=== PATIENT | female | born 2000 | race Caucasian/White ===

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

== ENCOUNTER 2020-04-06 22:18 | Emergency (ER) | payer OTHER ==
[2020-04-06 22:30] VITALS: BMI 24.8
--- NOTE | 2020-04-06 22:34 | PDOC ---
History of Present Illness - General Chief Complaint: Substance Abuse Stated Complaint: OVERDOSE Time Seen by Provider: 04/06/20 22:31 History Source: Patient Exam Limitations: No Limitations - History of Present Illness Initial Comments: 19 y.o female presents to the ED with edible cannabis intoxication. This is her first experience ingesting edible cannabis and reports taking it 2 hours prior to arrival. About 30 minutes later she began feeling lightheaded/dizziness, nausea/vomiting, and anxiousness when she had to lay down and called EMS. In the ED she reported continued anxiousness and dizziness and nausea/vomiting that improved after being given Zofran. She reported abdominal pain but attributed it to menstrual cramps. She denied CP, SOB, LOC/syncope, falls, numbness/tingling, or weakness. She did not take any other recreational drugs. PMH: none SH: none Meds: none Allergies: Augmentin Tob/Etoh/Rec drugs: Cannabis, no etoh, tob, or other rec drugs ROS GENERAL/CONSTITUTIONAL: No fever or chills. No weakness. HEENT: No change in vision. CARDIOVASCULAR: No chest pain or shortness of breath RESPIRATORY: No cough GASTROINTESTINAL: +Nausea and vomiting GENITOURINARY: No dysuria, frequency, or change in urination. MUSCULOSKELETAL: No joint or muscle swelling or pain. NEUROLOGIC: No headache, vertigo, loss of consciousness, or change in strength/sensation. PE GENERAL: Awake, alert, and fully oriented, in no acute distress HEAD: No signs of trauma, normocephalic, atraumatic EYES: PERRLA, EOMI, sclera anicteric, conjunctival injection ENT: Auricles normal inspection, hearing grossly normal, nares patent NECK: Normal ROM, supple HEART: Regular rhythm with tachycardia, normal S1 and S2, no murmurs, rubs or gallops, peripheral pulses normal and equal bilaterally LUNGS: No distress, speaks full sentences, clear to auscultation bilaterally ABDOMEN: Soft, nontender, normoactive bowel sounds. No guarding EXTREMITIES : Normal inspection, Normal range of motion, no edema. No clubbing or cyanosis. NEUROLOGICAL: CN II-XII intact. Normal speech, normal gait, no focal senso rimotor deficits SKIN: Warm, Dry, normal turgor, no rashes or lesions noted Assessment and Plan 1. Cannabis intoxication - 1L NS and 4mg IV Zofran, allow patient to sober up Patient stable for discharge. Informed of all lab and imaging results. Given follow up instructions and strict return precautions. Patient expressed understanding and agree to plan Gómez Freitas, PGY1 Emergency Medicine Past History - Medical History Allergies/Adverse Reactions: Allergies Allergy/AdvReac Type Severity Reaction Status Date / Time amoxicillin trihydrate Allergy Severe Verified 04/06/20 22:30 [From Augmentin] potassium clavulanate Allergy Severe Verified 04/06/20 22:30 [From Augmentin] Home Medications: Ambulatory Orders NK [No Known Home Medication] 09/20/18 COPD: No - Psycho-Social/Smoking History Smoking History: Current some day smoker Have you smoked in the past 12 months: Yes Number of Cigarettes Smoked Daily: 5 Information on smoking cessation initiated: No - Substance Abuse Hx (Audit-C & DAST Scrn) How often the patient has a drink containing alcohol: Monthly or less Number of drinks the patient has on a typical day: 1 or 2 How often the patient has six or more drinks on one occasion: Less than monthly Score: In Men: 4 or > Positive; In Women: 3 or > Positive: 2 Screen Result (Pos requires Nsg. Audit-10AR): Negative In the last yr the pt used illegal drug/Rx for NonMed reason: Yes Score: Yes response is considered Positive: 1 Screen Result (Positive result requires Nsg. DAST-10): Positive *Physical Exam - Vital Signs Last Vital Signs Temp Pulse Resp BP Pulse Ox 96.8 F L 102 H 20 134/89 97 04/06/20 22:27 04/06/20 22:27 04/06/20 22:27 04/06/20 22:27 04/06/20 22:27 Medical Decision Making - Medical Decision Making 19 y.o female presents to the ED with edible cannabis intoxication with anxiousness, dizziness, and nausea/vomiting. She was given 4mg IV Zofran and 1L NS with improvement of the nausea/vomiting. Physical exam was unremarkable and neuro exam intact. She did not take any other substances so no further workup was required. Patient was allowed to rest comfortably and sober up. She was able to tolerate PO and demonstrate the ability to ambulate. She is safe for discharge home. Discharge - Discharge Information Problems reviewed: Yes Clinical Impression/Diagnosis: Cannabis abuse with intoxication Condition: Stable Disposition: HOME - Admission No - Follow up/Referral - Patient Discharge Instructions Patient Printed Discharge Instructions: DI for Drug Abuse and Drug Addiction Additional Instructions: You came into the ED because of cannabis intoxication after ingesting an edible. You improved after getting medication for nausea and IV fluids. Your exam was benign. You did not require further workup. Come back to the ED if you are unable to tolerate drinking fluids due to nausea/vomiting, or worsening of your dizziness. - Post Discharge Activity Work/Back to School Note: Back to Work
[2020-04-06] MEDS ORDERED: ONDANSETRON 4 MG/2 ML VIAL IVPUSH ONE (22:45)
[2020-04-06] MEDS ORDERED: SODIUM CHLORIDE 1,000 ML IV STA (22:48)
--- NOTE | 2020-04-06 23:45 | PDOC ---
Documentation entered by Cornelio Mora SCRIBE, acting as scribe for Eugene Greene MD. Eugene Greene MD: This documentation has been prepared by the Abby salazar Nirvannie, SCRIBE, under my direction and personally reviewed by me in its entirety. I confirm that the documentation accurately reflects all work, treatment, procedures, and medical decision making performed by me. Attending Attestation - Resident Resident Name: Gómez Freitas - ED Attending Attestation I have performed the following: I have examined & evaluated the patient, The case was reviewed & discussed with the resident, I agree w/resident's findings & plan, Exceptions are as noted - HPI HPI: 04/06/20 23:02 The patient is a 19 year old female with no significant past medical history who presents to the ED via EMS with nausea and vomiting. While in the ED, patient admits to eating a piece of a marijuana edible this evening approximately 3 hours prior to arrival. Pt then began to feel nauseous and dizzy. Pt reports vomiting twice. Denies any abdominal pain. Denies any other ingestion. Allergies: Amoxicillin trihydrate, potassium clavulanate - Physicial Exam PE: 04/06/20 23:49 "GENERAL: Awake, alert, and fully oriented, in no acute distress. HEAD: No signs of trauma EYES: PERRLA, EOMI, sclera anicteric, conjunctiva clear ENT: Auricles normal inspection, hearing grossly normal, nares patent, oropharynx clear without exudates. Moist mucosa NECK: Nontender, no stepoffs, Normal ROM, supple, no lymphadenopathy, JVD, or masses LUNGS: Breath sounds equal, clear to auscultation bilaterally. No wheezes, and no crackles HEART: Regular rate and rhythm, normal S1 and S2, no murmurs, rubs or gallops ABDOMEN: Soft, nontender, normoactive bowel sounds. No guarding, no rebound. No masses EXTREMITIES: Normal range of motion, no edema. No clubbing or cyanosis. No cords, erythema, or tenderness NEUROLOGICAL: Cranial nerves II through XII intact. 5/5 strength and sensation in all extremities, Normal speech, normal gait, normal cerebellar function SKIN: Warm, Dry, normal turgor, no rashes or lesions noted. - Medical Decision Making 04/06/20 23:49 19 F with marijuana intoxication after ingesting marijuana edible. - IV fluids, zofran - Reassess when sober 04/07/20 01:20 Pt reports she feels much better Tolerating PO 04/07/20 01:53 Pt ambulating with steady gait Pt is well appearing, with normal vitals. Clinically stable for DC at this time. I discussed the physical exam findings, ancillary test results and final diagnoses with the patient. I answered all of the patient's questions. The patient was satisfied with the care received and felt comfortable with the discharge plan and treatment plan. The patient agrees to follow up with the primary care physician within 24-72 hours. Please note this patient was evaluated during the COV- crisis with the presidential [place] Act Declaration and the [place] governca executive order number 202. He/she was evaluated and clinical decisions were made relative to healthcare system resources as well as clinical picture during a pandemic crisis situation. Discharge - Discharge Information Problems reviewed: Yes Clinical Impression/Diagnosis: Cannabis abuse with intoxication Condition: Stable Disposition: HOME - Follow up/Referral - Patient Discharge Instructions Patient Printed Discharge Instructions: DI for Drug Abuse and Drug Addiction Additional Instructions: You came into the ED because of cannabis intoxication after ingesting an edible. You improved after getting medication for nausea and IV fluids. Your exam was benign. You did not require further workup. Come back to the ED if you are unable to tolerate drinking fluids due to nausea/vomiting, or worsening of your dizziness. - Post Discharge Activity Work/Back to School Note: Back to Work
[2020-04-07 02:06] VITALS: BP 126/78; PULSE 88; TEMP 97.8
== END 2020-04-07 02:04 | disposition home or self-care (01) ==
LOC: JER 22:18
PROC: 3E0337Z Introduction of Electrolytic and Water Balance Substance into Peripheral Vein, Percutaneous Approach (ICD-10-PCS; principal; 2020-04-06)
PROC: 3E033GC Introduction of Other Therapeutic Substance into Peripheral Vein, Percutaneous Approach (ICD-10-PCS; principal; 2020-04-06)
DX: F12.129 Cannabis abuse with intoxication, unspecified (principal)
CPT/HCPCS: 99284-25

== ENCOUNTER 2021-12-16 20:11 | Emergency (ER) | payer OTHER ==
[2021-12-16 20:27] VITALS: BMI 32.9
[2021-12-16] MEDS ORDERED: ONDANSETRON 4 MG/2 ML VIAL IVPUSH ONE (20:55)
[2021-12-16] MEDS ORDERED: ACETAMINOPHEN 1000 MG/100 ML BAG IVPB ONE (20:55)
[2021-12-16] MEDS ORDERED: SODIUM CHLORIDE 0.9% 500 ML INFUS.BAG IV ONE (20:55)
[2021-12-16] MEDS ORDERED: ONDANSETRON 4 MG/2 ML VIAL ONE (20:57)
[2021-12-16] MEDS ORDERED: ACETAMINOPHEN INJECTION 100 ML IVPB ONE (20:57)
[2021-12-16 21:24] LABS: BASO % 0.2 % (0-2.0); EOS % 0.6 % (0-4.5); HEMOGLOBIN 12.3 GM/dL (10.7-15.3); LYMPH % 14.8 % (8-40); MCH 28.4 pg (25.7-33.7); MCHC 34.2 g/dl (32.0-36.0); MEAN CELL VOLUME 83.3 fl (80-96); MONO % 6.5 % (3.8-10.2); NEUT % 77.9 % (42.8-82.8); PLATELET COUNT 329 10^3/uL (134-434); RBC 4.32 M/mm3 (3.60-5.2); RDW 12.9 % (11.6-15.6); WHITE BLOOD COUNT 12.4 K/mm3 (4.0-10.0)
[2021-12-16 21:45] LABS: ALBUMIN 3.7 g/dl (3.4-5.0); BLOOD UREA NITROGEN 11.2 mg/dL (7-18); CALCIUM 8.8 mg/dL (8.5-10.1); MAGNESIUM 2.1 mg/dL (1.8-2.4)
[2021-12-16 21:47] LABS: BILIRUBIN,TOTAL 0.3 mg/dL (0.2-1); CREATININE 0.5 mg/dL (0.55-1.3)
[2021-12-16 21:49] LABS: TOT PROT 8.1 g/dl (6.4-8.2)
[2021-12-16 22:44] VITALS: BP 120/76; PULSE 78; TEMP 98.1
== END 2021-12-16 22:44 | disposition home or self-care (01) ==
LOC: JER 20:11
PROC: 3E0333Z Introduction of Anti-inflammatory into Peripheral Vein, Percutaneous Approach (ICD-10-PCS; principal; 2021-12-16)
PROC: 3E033GC Introduction of Other Therapeutic Substance into Peripheral Vein, Percutaneous Approach (ICD-10-PCS; 2021-12-16)
DX: S93.401A Sprain of unspecified ligament of right ankle, initial encounter (principal); X50.0XXA Overexertion from strenuous movement or load, initial encounter; W10.9XXA Fall (on) (from) unspecified stairs and steps, initial encounter
CPT/HCPCS: 36415; 73590-TC-RT-FY; 73610-TC-RT-FY; 73630-TC-RT-FY; 80053; 83735; 84703; 85025; 93005; 93010; 99284-25

== ENCOUNTER 2022-03-20 01:17 | Emergency (ER) | payer OTHER ==
[2022-03-20 02:01] VITALS: BP 126/57; PULSE 99; TEMP 98.5; BMI 32.9
[2022-03-20] MEDS ORDERED: SODIUM CHLORIDE 1,000 ML IV STA (02:04)
[2022-03-20] MEDS ORDERED: ONDANSETRON 4 MG/2 ML VIAL IVPUSH ONE (02:04)
[2022-03-20 02:46] LABS: PH,URINE 6.5 (5.0-8.0); URINE APPEARANCE CLEAR; URINE BILIRUBIN NEGATIVE (NEGATIVE); URINE COLOR YELLOW; URINE GLUCOSE (UA) NEGATIVE (NEGATIVE); URINE KETONE NEGATIVE (NEGATIVE); URINE LEUK ESTERASE NEGATIVE (NEGATIVE); URINE NITRITE NEGATIVE (NEGATIVE); URINE PROTEIN NEGATIVE (NEGATIVE); URINE UROBILINOGEN 0.2 mg/dL (0.2-1.0)
[2022-03-20 02:58] LABS: ALBUMIN 3.5 g/dl (3.4-5.0); BLOOD UREA NITROGEN 11.3 mg/dL (7-18); CALCIUM 8.8 mg/dL (8.5-10.1)
[2022-03-20 03:01] LABS: CREATININE 0.4 mg/dL (0.55-1.3)
[2022-03-20 03:03] LABS: BILIRUBIN,TOTAL 0.2 mg/dL (0.2-1); TOT PROT 7.9 g/dl (6.4-8.2)
[2022-03-20 03:19] LABS: BASO % 0.2 % (0-2.0); EOS % 0.8 % (0-4.5); HEMATOCRIT 32.8 % (32.4-45.2); LYMPH % 15.9 % (8-40); MCH 28.1 pg (25.7-33.7); MCHC 33.5 g/dl (32.0-36.0); MEAN CELL VOLUME 83.8 fl (80-96); MEAN PLT VOLUME 7.7 fl (7.5-11.1); MONO % 6.7 % (3.8-10.2); NEUT % 76.4 % (42.8-82.8); PLATELET COUNT 333 10^3/uL (134-434); RBC 3.91 M/mm3 (3.60-5.2); RDW 13.2 % (11.6-15.6)
== END 2022-03-20 05:01 | disposition home or self-care (01) ==
LOC: JER 01:17
PROC: 3E0337Z Introduction of Electrolytic and Water Balance Substance into Peripheral Vein, Percutaneous Approach (ICD-10-PCS; principal; 2022-03-20)
DX: F43.0 Acute stress reaction (principal); F41.9 Anxiety disorder, unspecified
CPT/HCPCS: 0241U-QW; 36415; 80053; 81003; 84703; 85025; 87086; 93005; 93010; 99284-25

== ENCOUNTER 2022-09-07 22:31 | Emergency (ER) | payer OTHER ==
[2022-09-07 22:53] VITALS: BP 112/75; PULSE 93; RESP 18; TEMP 98.7; BMI 31.1
[2022-09-07 23:20] LABS: BASO % 0.2 % (0-2.0); EOS % 0.7 % (0-4.5); HEMATOCRIT 35.9 % (32.4-45.2); HEMOGLOBIN 11.8 GM/dL (10.7-15.3); LYMPH % 20.3 % (8-40); MCH 27.9 pg (25.7-33.7); MEAN CELL VOLUME 84.5 fl (80-96); MONO % 6.6 % (3.8-10.2); NEUT % 72.2 % (42.8-82.8); PLATELET COUNT 365 10^3/uL (134-434); RBC 4.24 M/mm3 (3.60-5.2); RDW 13.2 % (11.6-15.6); WHITE BLOOD COUNT 12.1 K/mm3 (4.0-10.0)
[2022-09-07 23:55] LABS: BLOOD UREA NITROGEN 16.9 mg/dL (7-18); CALCIUM 9.2 mg/dL (8.5-10.1)
[2022-09-07 23:59] LABS: CREATININE 0.5 mg/dL (0.55-1.3)
== END 2022-09-08 00:49 | disposition home or self-care (01) ==
LOC: JER 22:31 → JERFT 22:31
DX: R00.2 Palpitations (principal)
CPT/HCPCS: 36415; 80048; 83735; 84443; 85025; 93005; 93010; 99284-25

== ENCOUNTER 2022-09-18 17:42 | Emergency (ER) | payer OTHER ==
[2022-09-18 17:53] VITALS: BP 103/62; PULSE 81; RESP 18; TEMP 98; BMI 31.1
[2022-09-18] MEDS ORDERED: DIPHTH,PERTUSS(ACELL),TET 0.5 ML DISP.SYRIN IM ONE ×2 (18:27→18:31)
== END 2022-09-18 18:49 | disposition home or self-care (01) ==
LOC: JER 17:42 → JERFT 17:42
PROC: 3E0234Z Introduction of Serum, Toxoid and Vaccine into Muscle, Percutaneous Approach (ICD-10-PCS; principal; 2022-09-18)
DX: S61.031A Puncture wound without foreign body of right thumb without damage to nail, initial encounter (principal); W26.8XXA Contact with other sharp object(s), not elsewhere classified, initial encounter
CPT/HCPCS: 90715; 99282-25

== ENCOUNTER 2022-09-22 15:30 | Emergency (ER) | payer OTHER ==
[2022-09-22 15:46] VITALS: RESP 18; BMI 31.1
[2022-09-22] MEDS ORDERED: SODIUM CHLORIDE 1,000 ML IV STA ×2 (16:41→20:50)
[2022-09-22 17:28] LABS: BASO % 0.1 % (0-2.0); EOS % 0.8 % (0-4.5); HEMATOCRIT 37.5 % (32.4-45.2); HEMOGLOBIN 12.1 GM/dL (10.7-15.3); LYMPH % 13.3 % (8-40); MCH 27.5 pg (25.7-33.7); MCHC 32.4 g/dl (32.0-36.0); MEAN CELL VOLUME 84.8 fl (80-96); MONO % 5.2 % (3.8-10.2); NEUT % 80.6 % (42.8-82.8); PLATELET COUNT 405 10^3/uL (134-434); RBC 4.42 M/mm3 (3.60-5.2); RDW 13.3 % (11.6-15.6); WHITE BLOOD COUNT 13.1 K/mm3 (4.0-10.0)
[2022-09-22 17:31] LABS: EPI CELLS >36 /uL (0-25.1); HYALINE CASTS 1 /uL (0-3.1); PH,URINE 5.5 (5.0-8.0); URINE APPEARANCE CLEAR; URINE BACTERIA 722 /uL (0-1359); URINE BILIRUBIN NEGATIVE (NEGATIVE); URINE COLOR YELLOW; URINE GLUCOSE (UA) NEGATIVE (NEGATIVE); URINE KETONE NEGATIVE (NEGATIVE); URINE LEUK ESTERASE 2+ (NEGATIVE); URINE NITRITE NEGATIVE (NEGATIVE); URINE PROTEIN NEGATIVE (NEGATIVE); URINE UROBILINOGEN 0.2 mg/dL (0.2-1.0); URINE WBC 83 /uL (0-25.8)
[2022-09-22 17:41] LABS: INR 1.08 (0.83-1.09); PROTHROMBIN TIME (PATIENT) 12.4 SEC (9.7-13.0)
[2022-09-22 17:44] LABS: ACTIVATED PTT 30.1 SECONDS (25.2-36.5)
[2022-09-22 17:49] LABS: CALCIUM 9.8 mg/dL (8.5-10.1)
[2022-09-22 17:50] LABS: BLOOD UREA NITROGEN 12.9 mg/dL (7-18); MAGNESIUM 2.2 mg/dL (1.8-2.4)
[2022-09-22 17:53] LABS: CREATININE 0.6 mg/dL (0.55-1.3)
[2022-09-22 17:54] LABS: BILIRUBIN,TOTAL 0.2 mg/dL (0.2-1); TOT PROT 8.6 g/dl (6.4-8.2)
[2022-09-22 18:01] LABS: URINE RBC 22.2 /uL (0-23.9)
[2022-09-22 19:55] VITALS: TEMP 98.5
[2022-09-22] MEDS ORDERED: ACETAMINOPHEN 500 MG TABLET (FP) PO ONE (19:58)
[2022-09-22] MEDS ORDERED: ACETAMINOPHEN 500 MG TABLET (FP) ONE (20:13)
[2022-09-22 22:59] VITALS: BP 110/70; PULSE 88
== END 2022-09-22 22:59 | disposition home or self-care (01) ==
LOC: JER 15:30
PROC: 3E0337Z Introduction of Electrolytic and Water Balance Substance into Peripheral Vein, Percutaneous Approach (ICD-10-PCS; principal; 2022-09-22)
DX: N30.90 Cystitis, unspecified without hematuria (principal)
CPT/HCPCS: 0241U-QW; 36415; 71046-TC-FY; 80053; 81003; 83735; 84443; 84484; 85025; 85379; 85610; 85730; 87086; 93005; 93010; 99285-25